=== PATIENT | female | born 1990 ===

== ENCOUNTER 2024-07-19 09:46 | Outpatient (CLI) | payer OTHER | END 2024-07-19 09:47 | disposition home or self-care (01) | LOC: PRENATAL 09:46 | PROVIDERS: ATTEND Obstetrics & Gynecology Maternal & Fetal Medicine | DX: O44.00 Complete placenta previa NOS or without hemorrhage, unspecified trimester (principal); O09.519 Supervision of elderly primigravida, unspecified trimester; Z3A.31 31 weeks gestation of pregnancy ==